=== PATIENT | male | born 1945 | race Caucasian/White ===

== ENCOUNTER → 2016-09-14 | Outpatient (CLI) | payer MEDICARE ==
[~2016-09-14] MED LIST: AMBIEN10 MG PO; ARICEPT5 MG PO; ASPIRIN EC81 MG PO; CORDARONE 200M200 MG PO; COZAAR25 MG PO; LEVAQUIN500 MG PO; LOPRESSOR 25 MG25 MG PO; NAMENDA XR21 MG PO; NEURONTIN300 MG PO; NITROSTAT 0.40.4 MG SL; PRADAXA 150 MG150 MG PO; PRADAXA75 MG PO; PROTONIX 40 MG40 M1 PO; TOPROL XL25 MG PO; TYLENOL W/CODEIN1 E1 PO; VISTARIL 25 MG25 MG PO; VITAMIN D50000 UNIT PO; ZOLOFT100 MG PO
== END ==
LOC: KOH-I 13:08
DX: J44.9 Chronic obstructive pulmonary disease, unspecified (principal)
CPT/HCPCS: 72110

== ENCOUNTER 2020-11-29 09:43 | Inpatient (IN) | payer MEDICARE ==
[~2020-11-29] VITALS: Ht 177.8 cm; Wt 113.4 kg
[~2020-11-29 09:43] MED LIST changes: -AMBIEN10 MG PO; -LOPRESSOR 25 MG25 MG PO; -NITROSTAT 0.40.4 MG SL
[2020-11-29 10:33] LABS: HEMOGLOBIN 14.2 gm/dl (14.0-17.5); RED BLOOD COUNT 4.82 M/UL (4.20-5.50); WHITE BLOOD COUNT 21.9 K/UL (4.5-11.0)
[2020-11-29 11:03] LABS: BUN/CREATININE RATIO 18 (0-10)
[2020-11-29] MEDS ORDERED: ASPIRIN EC81 MG PO (13:00)
[2020-11-29] MEDS ORDERED: TIROSINT25 MCG PO (13:00)
[2020-11-29] MEDS ORDERED: ELIQUIS5 MG PO (13:01)
[2020-11-29] MEDS ORDERED: ATORVASTATIN CA10 MG PO (13:01)
[2020-11-29] MEDS ORDERED: NAMENDA5 MG PO (13:03)
[2020-11-29] MEDS ORDERED: OMEPRAZOLE40 MG PO (13:03)
[2020-11-29] MEDS ORDERED: TYLENOL EXTRA500 MG PO (13:04)
[2020-11-29] MEDS ORDERED: TOPROL XL100 MG PO (14:09)
[2020-11-29] MEDS ORDERED: COZAAR100 MG PO (14:10)
[2020-11-29] MEDS ORDERED: AMBIEN5 MG PO (14:14)
[2020-11-29] MEDS ORDERED: NITROSTAT 0.40.4 MG SL (14:15)
[2020-11-30 04:47] LABS: HEMOGLOBIN 12.7 gm/dl (14.0-17.5)
[2020-11-30 04:48] LABS: RED BLOOD COUNT 4.33 M/UL (4.20-5.50)
[2020-11-30 05:27] LABS: BUN/CREATININE RATIO 23 (0-10)
--- NOTE | 2020-11-30 13:55 | NUR ---
AT APPROX 1330 TODAY PATIENT STARTED AGGRESSIVE AND ABUSIVE BEHAVIORS TOWARD STAFF AND SITTER. CALLED MD WITH THIS INFORMATION, SHE STARTED PATIENT ON DEPAKOTE BID AND A ONE TIME DOSE OF ATIVAN 1MG. ATIVAN GIVEN PATIENT TOLERATED WELL. WILL CONTINUE TO MONITOR, SITTER AT BEDSIDE.
--- NOTE | 2020-11-30 15:52 | NUR ---
PATIENT WITH INCREASED BEHAVIORS AFTER DOSE OF ATIVAN GIVEN. CALLED MD FRIAS FOR FURTHER INSTRUCTIONS. PER MD STOP AMIODARONE PER CARDIOLOGY, GIVE GEODON 10MG IM X 1. PATIENT STILL AWAKE, IN THE BED, SITTER AT BEDSIDE. WILL CONTINUE TO MONITOR. DOSE GIVEN AT 1500. BEHAVIORS STARTED AGAIN AT 1430
--- NOTE | 2020-11-30 16:45 | NUR ---
1630 CALLED MD FRIAS BACK. PATIENT STILL WITH BEHAVIORS HE IS AGGRESSIVE AND ABUSIVE TO STAFF AND SITTER. SHE HAS ORDERED VALIUM AND RISPERADAL 0.5MG BID. SHE ASKED TO HAVE THE FAMILY COME SIT WITH THE PATIENT. WILL DISCUSS THIS WITH THE FAMILY. IV VALIUM GIVEN PATIENT IS RESTING QUIETLY.
--- NOTE | 2020-11-30 23:39 | NUR ---
PATIENTS APPROVED TO STAY WITH PATIENT PER SITE ACQUISITION SPECIALIST AND MD. EDUCATED ON FALL RISK AND IMPORTANCE FOR PATIENT TO COMPLY. BED ALARM ON, BED LOCKED AND IN LOWEST POSITION. CALL LIGHT WITHIN REACH. STATES SHE UNDERSTANDS.
[2020-12-01 03:28] LABS: HEMOGLOBIN 13.5 gm/dl (14.0-17.5); RED BLOOD COUNT 4.56 M/UL (4.20-5.50)
[2020-12-01 03:35] LABS: WHITE BLOOD COUNT 25.3 K/UL (4.5-11.0)
[2020-12-01 03:59] LABS: BUN/CREATININE RATIO 34 (0-10)
[2020-12-02 03:15] LABS: HEMOGLOBIN 13.4 gm/dl (14.0-17.5); RED BLOOD COUNT 4.49 M/UL (4.20-5.50); WHITE BLOOD COUNT 22.9 K/UL (4.5-11.0)
[2020-12-03 02:57] LABS: HEMOGLOBIN 13.7 gm/dl (14.0-17.5); RED BLOOD COUNT 4.61 M/UL (4.20-5.50); WHITE BLOOD COUNT 18.1 K/UL (4.5-11.0)
[2020-12-04 02:50] LABS: HEMOGLOBIN 12.9 gm/dl (14.0-17.5); RED BLOOD COUNT 4.34 M/UL (4.20-5.50); WHITE BLOOD COUNT 18.5 K/UL (4.5-11.0)
[2020-12-06 02:42] LABS: HEMOGLOBIN 13.3 gm/dl (14.0-17.5); RED BLOOD COUNT 4.53 M/UL (4.20-5.50); WHITE BLOOD COUNT 18.9 K/UL (4.5-11.0)
[2020-12-06 14:10] LABS: ANTI-DSDNA ANTIBODIES <1 IU/mL (0-9); ANTISTREPTOLYSIN O AB 59.3 IU/mL (0.0-200.0); COMPLEMENT C3, SERUM 126 mg/dL (82-167); COMPLEMENT C4, SERUM 23 mg/dL (12-38)
[2020-12-07 03:56] LABS: HEMOGLOBIN 12.9 gm/dl (14.0-17.5); RED BLOOD COUNT 4.26 M/UL (4.20-5.50); WHITE BLOOD COUNT 16.5 K/UL (4.5-11.0)
[2020-12-07 07:11] LABS: HBSAG SCREEN Negative (Negative); HEP B CORE AB, TOT Negative (Negative); HEP C VIRUS AB <0.1 (0.0-0.9)
[2020-12-07 07:11] LABS: CREATININE, URINE 87.4 mg/dL (Not Estab.)
[2020-12-07 08:13] LABS: ATYPICAL PANCA <1:20 titer (Neg:<1:20); CYTOPLASMIC (C-ANCA) <1:20 titer (Neg:<1:20); PERINUCLEAR (P-ANCA) <1:20 titer (Neg:<1:20)
[2020-12-07 16:14] LABS: A/G RATIO 1.4 (0.7-1.7); ALBUMIN 3.2 g/dL (2.9-4.4); ALPHA-1-GLOBULIN 0.2 g/dL (0.0-0.4); ALPHA-2-GLOBULIN 0.7 g/dL (0.4-1.0); BETA GLOBULIN 0.8 g/dL (0.7-1.3); GAMMA GLOBULIN 0.7 g/dL (0.4-1.8); GLOBULIN, TOTAL 2.4 g/dL (2.2-3.9); IMMUNOFIXATION RESULT, SERUM Comment: (.); IMMUNOGLOBULIN A, QN, SERUM 124 mg/dL (61-437); IMMUNOGLOBULIN G, QN, SERUM 702 mg/dL (603-1613); IMMUNOGLOBULIN M, QN, SERUM 112 mg/dL (15-143); M-SPIKE Not Observed g/dL (Not Observed); PROTEIN, TOTAL, SERUM 5.6 g/dL (6.0-8.5)
[2020-12-08 03:57] LABS: HEMOGLOBIN 12.3 gm/dl (14.0-17.5); RED BLOOD COUNT 4.13 M/UL (4.20-5.50); WHITE BLOOD COUNT 18.5 K/UL (4.5-11.0)
[2020-12-08 18:58] LABS: HEMOGLOBIN 12.2 gm/dl (14.0-17.5); RED BLOOD COUNT 3.93 M/UL (4.20-5.50); WHITE BLOOD COUNT 19.5 K/UL (4.5-11.0)
[2020-12-09 04:32] LABS: HEMOGLOBIN 11.7 gm/dl (14.0-17.5); RED BLOOD COUNT 3.8 M/UL (4.20-5.50)
== END 2020-12-09 10:34 | disposition short-term general hospital (02) | DRG 177 ==
LOC: ER1 09:43 → PROG CARE 11:41 → CDU 11:41 → PROG CARE 11-30 05:45
PROVIDERS: Family Medicine; Internal Medicine; Internal Medicine Nephrology; Physician Assistant; Physician Assistant Medical; ADMIT Internal Medicine
PROC: 8E0ZXY6 Isolation (ICD-10-PCS; principal; 2020-11-29)
PROC: 3E0333Z Introduction of Anti-inflammatory into Peripheral Vein, Percutaneous Approach (ICD-10-PCS; 2020-11-29)
PROC: XW033E5 Introduction of Remdesivir Anti-infective into Peripheral Vein, Percutaneous Approach, New Technology Group 5 (ICD-10-PCS; 2020-11-29)
PROC: XW033G6 Introduction of REGN-COV2 Monoclonal Antibody into Peripheral Vein, Percutaneous Approach, New Technology Group 6 (ICD-10-PCS; 2020-11-29)
DX: U07.1 COVID-19 (principal); J12.82 Pneumonia due to coronavirus disease 2019; G93.41 Metabolic encephalopathy; J96.01 Acute respiratory failure with hypoxia; J15.9 Unspecified bacterial pneumonia; N17.9 Acute kidney failure, unspecified; K21.9 Gastro-esophageal reflux disease without esophagitis; E03.9 Hypothyroidism, unspecified; I12.9 Hypertensive chronic kidney disease with stage 1 through stage 4 chronic kidney disease, or unspecified chronic kidney disease; N18.30 Chronic kidney disease, stage 3 unspecified; F01.50 Vascular dementia, unspecified severity, without behavioral disturbance, psychotic disturbance, mood disturbance, and anxiety; N40.1 Benign prostatic hyperplasia with lower urinary tract symptoms; E78.5 Hyperlipidemia, unspecified; E87.6 Hypokalemia; E87.5 Hyperkalemia; N32.0 Bladder-neck obstruction; I48.0 Paroxysmal atrial fibrillation; N30.81 Other cystitis with hematuria; Z79.01 Long term (current) use of anticoagulants; Z90.89 Acquired absence of other organs; Z95.0 Presence of cardiac pacemaker; Z79.899 Other long term (current) drug therapy; Z82.61 Family history of arthritis; Z79.82 Long term (current) use of aspirin
CPT/HCPCS: ECHO; 36415; 36600; 70450; 71045; 80048; 80053; 80162; 81001; 82043; 82550; 82553; 82570; 82784; 82803; 83520; 83605; 83735; 83874; 83880; 83883; 84155; 84156; 84165; 84439; 84443; 84484; 85025; 85027; 86038; 86060; 86160; 86162; 86225; 86256; 86334; 86704; 86706; 86708; 86803; 87040; 87086; 87340; 89050; 93005; 93306; 94640; 94664; 94760; 96374; 96375; 97161; 97166; 99285; J0360; J0456; J0696; J1100; J1160; J1335; J2060; J2270; J2405; J2930; J3360; J3486; J7030; P9047; U0002